=== PATIENT | female | born 1945 | race Caucasian/White ===

== ENCOUNTER → 2019-04-17 12:55 | Outpatient (CLI) | payer MEDICARE, BC, SELFPAY ==
--- NOTE | 2019-04-17 12:59 | CA_ITS ---
PROCEDURE: 2-D M-mode and color Doppler study INDICATIONS FOR THE TEST: Chest pain COPD Heart Murmur Tobacco Smoking Palpitations+ Fatigue Syncope Edema Hypertension+Diabetes Mellitus Rheumatic Fever SOB MIRANDA Obesity Hyperlipidemia Family History HD Additional History PATIENT INFORMATION HEIGHT: 68 WEIGHT:160 GENDER: Female B/P:139/52 2-D/M-MODE INTERPRETATION: 2-D MEASUREMENTS OBSERVED VALUES IN CMS Right Ventricular Dimension (RVDd) 3.0 Interventricular Septum (Thickness)(IVsd) 0.9 Left Ventricular Internal Dimensions(LVIDd) 5.6 Left Ventricular Posterior Wall (Thickness)(LVPWd) 0.9 Aortic Root 2.8 Aortic Cusp Separation 1.8 Left Atrial Dimensions (LAD) 3.9 2D 1. Left atrium is mildly enlarged, left ventricle is normal size, there is mild concentric left ventricular hypertrophy, visually estimated ejection fraction of 55% with no regional wall motion abnormality. 2. The right atrium and right ventricle are mildly enlarged with normal contractility. 3. The aortic valve is thickened and calcified leaflet continue to display mobility. 4. The mitral and tricuspid valve leaflets are minimally thickened. 5. The pulmonic valve is poorly present. 6. No significant pericardial effusion noted. DOPPLER INTERROGATION: Doppler interrogation of the aortic, mitral and tricuspid valvular presence of mild aortic, mild mitral and tricuspid regurgitation, tricuspid regurgitation jet velocity is inadequate for calculation of the right ventricular systolic pressure, grade 1 diastolic dysfunction seen with tissue Doppler evidence of raised left atrial pressure. CONCLUSION: 1. Mild biatrial enlargement, normal left ventricular size, mild concentric left ventricular hypertrophy, visually estimated ejection fraction 55% with no regional wall motion abnormality, grade 1 diastolic dysfunction seen with tissue Doppler evidence of raised left atrial pressure. 2. Mildly enlarged right ventricle with normal contractility. 3. Mild aortic, mild mitral and tricuspid regurgitation 4. No significant pericardial effusion noted.
--- NOTE | 2019-04-17 12:59 | CI_ITS ---
Cerebrovascular Exam Indications: 785.9 Bruit. IMPRESSIONS 1. The bilateral vertebral arteries are patent with normal antegrade flow. 2. Study suggests less than 20% stenosis involving the right internal carotid artery. 3. Study suggests less than 20% stenosis involving the left internal carotid artery. History: Risk factors: Hypertension. Carotid duplex study. Complete study and Doppler flow study including spectral analysis, color and miller scale imaging. Height: Height: 172.7cm. Height: 68in. Weight: Weight: 72.6kg. Weight: 159.7lb. Body mass index: BMI: 24.3kg/m^2. Body surface area: BSA: 1.87m^2. Location: Vascular laboratory. Patient status: Outpatient. Tables: Arterial flow: + +--------+--------+ Location V sys V ed + +--------+--------+ Left CCA - distal 73.1cm/s 14.9cm/s + +--------+--------+ Left CCA - proximal 69.9cm/s 12.6cm/s + +--------+--------+ Left ICA - distal 53.9cm/s 17.4cm/s + +--------+--------+ Left ICA - mid 52.6cm/s 18.9cm/s + +--------+--------+ Left ICA - proximal 54.2cm/s 12.6cm/s + +--------+--------+ Left ECA 56.8cm/s 8.6cm/s + +--------+--------+ Left vertebral 31.4cm/s 9.4cm/s + +--------+--------+ Right CCA - distal 51.1cm/s 11.8cm/s + +--------+--------+ Right CCA - proximal 67.6cm/s 12.8cm/s + +--------+--------+ Right ICA - distal 58.7cm/s 14.1cm/s + +--------+--------+ Right ICA - mid 52cm/s 18.9cm/s + +--------+--------+ Right ICA - proximal 48.3cm/s 11.6cm/s + +--------+--------+ Right ECA 57.9cm/s 9.7cm/s + +--------+--------+ Right vertebral 32.8cm/s 9.1cm/s + +--------+--------+ Velocity ratios: + + + + + + Right, V sys Right, V ed Left, V sys Left, V ed + + + + + + Max ICA/dist CCA 1.15 1.6 0.74 1.27 + + + + + + (Report amended ) Electronically signed by: Jerry Segura [id number]
== END ==
PROVIDERS: PCP Internal Medicine; Visit Provider Internal Medicine
DX: I65.23 Occlusion and stenosis of bilateral carotid arteries (principal); R00.2 Palpitations; I10 Essential (primary) hypertension; R09.89 Other specified symptoms and signs involving the circulatory and respiratory systems
CPT/HCPCS: 93306; 93880

== ENCOUNTER → 2019-04-20 11:31 | Outpatient (CLI) | payer MEDICARE, BC, SELFPAY | PROVIDERS: PCP Internal Medicine; Visit Provider Internal Medicine | DX: R00.2 Palpitations (principal); I10 Essential (primary) hypertension; H49.02 Third [oculomotor] nerve palsy, left eye | CPT/HCPCS: 93225; 93226 ==